=== PATIENT | female | born 1945 | race Caucasian/White ===

== ENCOUNTER → 2020-02-17 | Outpatient (CLI) | payer BC, MEDICARE ==
--- NOTE | 2020-02-23 11:13 | RAD ---
EXAM: Bilateral digital screening mammogram with tomosynthesis. HISTORY: 74-year-old female presents for screening mammography. TECHNIQUE: Full-field digital craniocaudal and mediolateral oblique 2D and 3D tomosynthesis images of both breasts are obtained for evaluation. Computer aided detection was applied. COMPARISON: 02/08/2019 and 02/16/2018 BREAST PARENCHYMAL DENSITY: Level B - Scattered fibroglandular densities. FINDINGS: There is no new suspicious mass, microcalcification or region of architectural distortion. IMPRESSION: BI-RADS Category 2: Benign finding(s). RECOMMENDATION: Annual mammography is recommended. If your mammogram demonstrates that you have dense breast tissue, which could hide abnormalities, and if you have other risk factors for breast cancer that have been identified, you might benefit from supplemental screening tests that may be suggested by your ordering physician. Dense breast tissue, in and of itself, is a relatively common condition. This information is not provided to cause undue concern, but rather to raise your awareness and to promote discussion with your physician regarding the presence of other risk factors, in addition to dense breast tissue. A report of your mammography results will be sent to you and your physician. You should contact your physician if you have any questions or concerns regarding this report. Mammography is a sensitive method for finding small breast cancers, but it does not detect them all and is not a substitute for careful clinical examination. A negative mammogram does not negate a clinically suspicious finding and should not result in delay in biopsying a clinically suspicious abnormality. PQRS compliance statement - Patient information was entered into a reminder system with a target due date for the next mammogram. "Our facility is accredited by the [employer] Mammography [employer]." Electronically signed by: Connie Gupta MD (02/23/2020 11:10 AM) [id number]
== END ==
LOC: MAMMO 13:46
PROVIDERS: ATTEND Family Medicine
DX: Z12.31 Encounter for screening mammogram for malignant neoplasm of breast (principal)
CPT/HCPCS: 77063; 77067

== ENCOUNTER → 2021-01-05 | Outpatient (CLI) | payer BC, MEDICARE ==
[~2021-01-05] VITALS: Ht 157.5 cm; Wt 77.1 kg
[~2021-01-05] MED LIST: MORPHINE SULFATE 2 MG/ML DISP.SYRIN. IV PRN
--- NOTE | 2021-01-05 10:33 | RAD ---
EXAM: HEPATOBILIARY SCINTIGRAPHY WITH GALLBLADDER EJECTION FRACTION CALCULATION. HISTORY: Epigastric pain and nausea. TECHNIQUE: 5.1 mCi technetium-99m Choletec were administered intravenously and scintigraphic images o f the abdomen obtained. 2 mg morphine were administered after 75 minutes and imaging continued for 30 more minutes. FINDINGS: There is mildly delayed hepatic clearance of tracer from the blood pool. There is homogeneo us distribution throughout the liver. The gallbladder did not fill through 60 minutes. It does fill a fter morphine administration. IMPRESSION: 1. Filling of the gallbladder indicating cystic duct patency. 2. Mildly delayed clearance of activity from the blood pool. Correlate for hepatocellular dysfunction . Electronically signed by: Cheri Trimble MD (01/05/2021 10:31 AM) [facility]
== END ==
LOC: NM 07:47
PROVIDERS: ATTEND Family Medicine
DX: K80.12 Calculus of gallbladder with acute and chronic cholecystitis without obstruction (principal); R94.5 Abnormal results of liver function studies; R10.13 Epigastric pain; R11.0 Nausea
CPT/HCPCS: 78227; A9537; J2270

== ENCOUNTER → 2021-02-19 | Outpatient (CLI) | payer BC, MEDICARE ==
--- NOTE | 2021-02-19 11:31 | RAD ---
INDICATION : Routine Screening. COMPARISON: Multiple priors including January 2017 TECHNIQUE: Standard mammogram screening views of the bilateral breasts were obtained with 3D tomosynt hesis. CAD was utilized. FINDINGS: The breasts are scattered density. No definite suspicious mass. IMPRESSION: BI-RADS Category 1: Negative. The patient was placed into the recall system with a suggested recall date for follow up imaging. Mammography is the most sensitive method for finding small breast cancers, but it does not detect the m all and is not a substitute for careful clinical examination. A negative mammogram does not negate a clinically suspicious finding and should not result in delay in biopsying a clinically suspicious abnormality. Electronically signed by: Pablito Bauer MD (02/19/2021 11:29 AM) [id number]
== END ==
LOC: MAMMO 10:18
PROVIDERS: ATTEND Family Medicine
DX: Z12.31 Encounter for screening mammogram for malignant neoplasm of breast (principal)
CPT/HCPCS: 77063; 77067